=== PATIENT | female | born 1965 | race Two or more races ===

== ENCOUNTER 2016-10-12 07:58 | Day surgery (SDC) | payer BC ==
[2016-10-12] VITALS (9 sets, daily range): BP systolic 101–130; BP diastolic 64–73
[~2016-10-12] VITALS: Ht 162.6 cm; Wt 58.1 kg
--- NOTE | 2016-10-12 06:50 | Anethesia Preoperative Eval ---
Anesthesia Pre-op PMH/ROS General Date of Evaluation: October 12, 2016 Anesthesiologist: Mateusz ASA Score: ASA 2 Mallampati Score Class I : Soft palate, uvula, fauces, pillars visible Class II: Soft palate, uvula, fauces visible Class III: Soft palate, base of uvula visible Class IV: Only hard plate visible Mallampati Classification: Class II Surgeon: Jing Diagnosis: Screening Surgical Procedure: EGD and colonoscopy Anesthesia History: none Family History: no anesthesia problems Allergies: Coded Allergies: SULFA (SULFONAMIDE ANTIBIOTICS) (Verified Allergy, Mild, 10/11/16) skin rash and itching Medications: see eMAR Past Medical History Cardiovascular: Reports: other - HLD, Denies: CAD, HTN, TN, arrhythmia, valve dz Pulmonary: Denies: COPD, EM, asthma, other Gastrointestinal/Genitourinary: Reports: GERD, Denies: CRI, ESRD, other Neurologic/Psychiatric: Reports: depression/anxiety, Denies: CVA, TIA, dementia, other Endocrine: Denies: DM, hypothyroidism, other, steroids HEENT: Denies: [place] (L), [place] (R), cataract (L), cataract (R), glaucoma, other Hematology/Immune: Denies: DVT, anemia, bleeding disorder, other Musculoskeletal/Integumentary: Denies: DDD, DJD, OA, RA, edema, other PSxH Narrative: T&A Anesthesia Pre-op Phys. Exam Physician Exam see chart Constitutional: NAD Cardiovascular: RRR Respiratory: CTA Airway Exam Mallampati Score: Class II MO: full ROM: full Anesthesia Pre-op A/P Labs see chart Studies Pre-op Studies: EKG - sr Risk Assessment & Plan Assessment: ASA II Plan: MAC Status Change Before Surgery: No Pre-Antibiotics Drug: N/A CHRISTINA AMES M.D. October 12, 2016 06:50
[~2016-10-12 07:58] MED LIST: KLONOPIN0.5 MG ORAL; LR 1000ml 1,000 ML IVLG SCH; SERTRALINE HCL50 MG ORAL; VITAMIN D400 INTLU ORAL
[2016-10-12] MEDS ORDERED: LR 1000ml 1,000 ML IVLG SCH (08:44)
[2016-10-12] MEDS ORDERED: DiphenhydrAMINE 50mg/ml Inj IVP PRN (08:45)
--- NOTE | 2016-10-12 08:45 | Short Stay Surgery H&P ---
History of Present Illness History of Present Illness Chief Complaint Screening colon and GERDs/abdominal pains. SOFÍA Pelayo is a 51 year old female who was admitted on for Abdominal Pain/ screening colon. Patient History Allergies: Coded Allergies: SULFA (SULFONAMIDE ANTIBIOTICS) (Verified Allergy, Mild, 10/11/16) skin rash and itching PAST MEDICAL HISTORY: Past Surgeries: Social History: Medication History Scheduled Clonazepam* (Klonopin*), 0.5 MG ORAL , (Reported) Sertraline Hcl* (Zoloft*), 50 MG ORAL DAILY, (Reported) Vitamin D (Vitamin D3), 400 UNITS ORAL DAILY, (Reported) Review of Systems Cardiovascular: Reports: no symptoms Respiratory: Reports: no symptoms Skeletal: Reports: no symptoms Gastrointestinal: Reports: gastro esophageal reflux disease Genitourinary: Reports: no symptoms Neurologic: Reports: no symptoms Endocrine: Reports: no symptoms Hematologic: Reports: no symptoms Physical Exam Vital Signs Last Vital Signs Date Time Temp Pulse Resp B/P Pulse Ox O2 Delivery O2 Flow Rate FiO2 10/12/16 08:26 97.7 68 20 130/72 99 Room Air Skin: normal HENT: normal Heart: normal Lungs: normal Abdomen: normal Extremities: normal Genitourinary: normal Plan Plan of Care Upper and lower GI endoscopies. Preop Interventions None. Summary of Findings See the reports. Final Diagnosis: Attestation Are the patient's medical conditions optimized for surgery? Attestation Response: yes JESSIKA ROCA October 12, 2016 08:45
--- NOTE | 2016-10-12 08:46 | Pre-Procedure Note/Attestation ---
Pre-Procedure Note/Attestation Complete Prior to Procedure Planned Procedure: left Procedure Narrative: Upper and the lower endoscopic exam of the GI tract. Indications for Procedure Pre-Operative Diagnosis: R/O Colon Ca and gastritis/peptic ulcer. Attestation I attest that I discussed the nature of the procedure; its benefits; risks and complications; and alternatives (and the risks and benefits of such alternatives ), prior to the procedure, with the patient (or the patient's legal sales representative sales manager). I attest that, if there was a reasonable possibility of needing a blood transfusion, the patient (or the patient's legal sales representative sales manager) was given the [place] [facility] [employer] [facility] standardized written summary, pursuant to the [place] C Blood Safety Act ([place] Health and Safety Code # 1645, as amended). I attest that I re-evaluated the patient just prior to the surgery and that there has been no change in the patient's H&P, except as documented below: CHANELLE,SAID October 12, 2016 08:46
[2016-10-12] MEDS ORDERED: LR 1000ml ONE (09:00)
[2016-10-12] MEDS ORDERED: Propofol 10mg/ml 20ml IV ONE (09:00)
[2016-10-12] MEDS ORDERED: Lidocaine 1% MPF 10mg/ml 5ml ONE (09:00)
--- NOTE | 2016-10-12 09:28 | Endoscopy Procedure Note ---
Endoscopy Procedure Note Indication for Procedure: Screening colon with history GERDs. Procedures Performed: EGD - Normal upper GI endoscopy with random gastric biopsy., colonoscopy - Normal total colonoscopy with highly redundant left colon. Poor colon prep with no evidence of major polyps though possible diminutive polyp could not be ruled out due to poor prep. Pt Tolerated Procedure Well: Yes Anesthesiologist: Dr. Snyder Medication Given: see anesthesia record Implant(s) used?: No 50 yrs or older w/o bx or poly: Yes 10yrs. F/U not recommended: Yes 10 yrs. F/U needed: Yes 18 years or older w/prev. colo: No <3yrs. since last colonoscopy: Yes Med reason:<3 yrs.: System Reason:<3 yrs.: JESSIKA ROCA October 12, 2016 09:28
--- NOTE | 2016-10-12 09:29 | Discharge Instructions ---
Discharge Instructions Discharge Instructions Follow up with: See doctor in office after two weeks. For Congestive Heart Failure Reminder Report to your physician any weight gain of 5 pounds or more in one week. JESSIKA ROCA October 12, 2016 09:29
--- NOTE | 2016-10-12 09:35 | Immediate Post-Op Evaluation ---
Immediate Post-Op Evalulation Immediate Post-Op Evalulation Procedure: EGd and colonoscopy Date of Evaluation: October 12, 2016 Time of Evaluation: 09:36 IV Fluids: 200 Blood Products: 0 Estimated Blood Loss: 0 Urinary Output: 0 Blood Pressure Systolic: 108 Blood Pressure Diastolic: 62 Pulse Rate: 67 Respiratory Rate: 16 O2 Sat by Pulse Oximetry: 99 Temperature (Fahrenheit): 97 Pain Score (1-10): 0 Nausea: No Vomiting: No Complications 0 Patient Status: awake, reacts, patent, none Hydration Status: adequate Drug: N/A CHRISTINA AMES M.D. October 12, 2016 09:35
--- NOTE | 2016-10-12 10:45 | 48 Hour Post Anesthesia Eval ---
Post Anesthesia Evaluation Procedure: EGd and colonoscopy Date of Evaluation: October 12, 2016 Time of Evaluation: 10:15 Blood Pressure Systolic: 101 0: 64 Pulse Rate: 65 Respiratory Rate: 16 Temperature (Fahrenheit): 97.2 O2 Sat by Pulse Oximetry: 100 Airway: patent Nausea: No Vomiting: No Pain Intensity: 0 Hydration Status: adequate Cardiopulmonary Status: at baseline Mental Status/LOC: patient returned to baseline Post-Anesthesia Complications: 0 Follow-up care needed: ready to discharge CHRISTINA AMES M.D. October 12, 2016 10:45
--- NOTE | 2016-10-12 16:59 | Operative Note - Dictated ---
DATE OF OPERATION: 10/12/2016 SURGEON: Jerardo Ch M.D. PROCEDURE: Esophagogastroduodenoscopy with biopsy. PREOPERATIVE DIAGNOSES: History of gastroesophageal reflux and abdominal pain. POSTOPERATIVE DIAGNOSES: Completely normal upper GI endoscopy. Biopsies were taken per random from gastric body. MEDICATIONS USED: Per . INSTRUMENT: GIF Olympus upper GI videoendoscope. DESCRIPTION OF PROCEDURE: The patient after arriving at the endoscopy unit was told about the risks and benefits of the procedure, which she accepted, and signed the informed consent. She was then put in the left lateral decubitus position. After adequate IV sedation, the scope was gently passed through the cricopharyngeal area and was lodged into the upper esophagus and gradually advanced towards the gastroesophageal junction. The entire length of the esophagus looked normal. No evidence of inflammatory process, ulceration, stricture, etc. was found. GE junction also looked completely normal. No evidence of hiatal hernia or Sherman's. The scope was then guided into the stomach. Gastric cavity was distended with insufflation of air. The areas of the fundus and the body of the stomach and antrum were examined in an siding coreboard inspector fashion, which revealed no pathology. The retroflexion maneuver, which was also applied, revealed normal findings in the fundus of the stomach. Finally, random biopsies from the gastric body were obtained. Subsequently, the scope was passed through the pylorus. First and second portions of the duodenum were also found to be completely normal. At this time, the scope was pulled out and the procedure was terminated. The patient tolerated the procedure well. Jerardo Ch M.D. DR: BEATRICE JOB#: [id number] CC:
--- NOTE | 2016-10-12 17:08 | Operative Note - Dictated ---
DATE OF OPERATION: 10/12/2016 PROCEDURE: Total colonoscopy. PREOPERATIVE DIAGNOSIS: Screening colonoscopy. POSTOPERATIVE DIAGNOSIS: Completely normal total colonoscopy. MEDICATIONS USED: Per Dr. Snyder. INSTRUMENT: GIF Olympus videocolonoscope. DESCRIPTION OF PROCEDURE: The patient after arriving in the endoscopy unit, was told about risks and benefits of the procedure, which she accepted and signed the informed consent. She was then put on the left lateral decubitus position. After adequate IV sedation, scope was gently passed through the anal area and careful examination of dissection revealed no particular abnormality. The scope was gradually passed through rather redundant left colon, which was filled with liquidy stool suggestive of poor colonic preparation. However, there was no any gross pathology such as large polyps, inflammatory process, ulceration, stricture, etc. was found though occasional diminutive polypoid lesion could not be ruled out due to lack of complete adequate cleanup of the colon. Multiple irrigations had to be given to be able to go through the colon and gradually the scope was reached towards the splenic flexure. From there, it was guided into the transverse colon, which seemed to be hepatic flexure and finally reached to the right colon all the way to the base of the cecum. All these areas remained to be normal and no particular pathology was found. Finally within 5 to 6 minutes, the scope was gradually pulled out and careful examination of the colon did not reveal any pathology as I mentioned earlier. The patient tolerated the procedure well and left the endoscopy room in good condition. Said Jean Paul Ch DR: CANDIDA JOB#: [id number] CC:
== END 2016-10-12 10:40 | disposition home or self-care (01) ==
LOC: GAS 07:58 → EDBD 09:15 → GAS 10:40
DX: Z12.11 Encounter for screening for malignant neoplasm of colon (principal); Q43.8 Other specified congenital malformations of intestine; K29.50 Unspecified chronic gastritis without bleeding; B96.81 Helicobacter pylori [H. pylori] as the cause of diseases classified elsewhere; K21.9 Gastro-esophageal reflux disease without esophagitis; E78.5 Hyperlipidemia, unspecified; F32.9 Major depressive disorder, single episode, unspecified; F41.9 Anxiety disorder, unspecified; Z88.2 Allergy status to sulfonamides
CPT/HCPCS: 43239; 45378; J2704; J7120; 94003; 94150